=== PATIENT | female | born 1960 | race American Indian/Alaskan Native ===

== ENCOUNTER 2017-08-04 08:05 | Outpatient (CLI) | payer MEDICAID ==
--- NOTE | 2017-08-04 09:10 | Mammography Report ---
BILATERAL DIGITAL SCREENING MAMMOGRAM with CAD: 08/04/17 08:05:00 CLINICAL: Routine screening. COMPARISON: 08/04/16 FINDINGS: The breasts are mostly fatty with a few scattered areas of fibroglandular density.The right breast is smaller than the left but this is unchanged compared to prior exams.No mass, architectural distortion or suspicious calcifications. IMPRESSION: No mammographic evidence of malignancy. BI-RADS CATEGORY: 2 - - Benign RECOMMENDATION: Routine mammographic screening in one year. COMMENT: Patient follow-up letters are generated by our [employer] application.
== END 2017-08-04 08:06 | disposition home or self-care (01) ==
LOC: SPVWC 08:05
PROVIDERS: ATTEND Family Medicine
DX: Z12.31 Encounter for screening mammogram for malignant neoplasm of breast (principal)
CPT/HCPCS: 77067; G0202

== ENCOUNTER 2021-03-26 12:47 | Outpatient (CLI) | payer MEDICAID | END 2021-03-26 12:48 | disposition home or self-care (01) | LOC: SPVIMAG 12:47 | PROVIDERS: ATTEND Surgery | DX: C50.211 Malignant neoplasm of upper-inner quadrant of right female breast (principal) | CPT/HCPCS: A9575; C8908; 77049 ==

== ENCOUNTER 2021-04-03 13:17 | Outpatient (CLI) | payer MEDICAID ==
--- NOTE | 2021-04-08 08:47 | Mammography Report ---
RIGHT DIGITAL DIAGNOSTIC MAMMOGRAM WITH CAD , 04/03/2021 RIGHT LIMITED BREAST ULTRASOUND CLINICAL INFORMATION / INDICATION: -Abnormal MRI. 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 TECHNIQUE: Digital right mammographic imaging was performed. Magnification views were obtained. Limit ed ultrasound was performed. This examination was interpreted with the benefit of Computer-Aided Dete ction (CAD) analysis. COMPARISON: Recent MRI 03/26/2021 and prior bilateral mammogram 08/04/2017. The most recent mammogram f rom outside facility is not available for review. FINDINGS: Breast Density: There are scattered areas of fibroglandular density. MAMMOGRAPHIC FINDINGS: There is large area of malignant appearing calcifications in the upper inner q uadrant of the right breast, involving mid and posterior depth tissue. In the center of these calcifi cations is a biopsy clip.. The area of calcifications measures approximately 7.5 x 5 cm. Additionally, the subareolar area was evaluated. There is an oval partially well-circumscribed nodule containing a coarse calcification. The nodule measures approximately 6 mm in greatest diameter and m ore than likely correlates with enhancing nodule seen on recent MRI. This nodule was not present on t 2016 mammogram. I suspect this will either represent a papilloma or possible fibroadenoma. ULTRASOUND FINDINGS: Targeted ultrasound evaluation was performed of the area of interest. Sonograp hic evaluation of the retroareolar region of the right breast does not reveal a sonographic correlate for the subareolar nodule seen on mammogram and MRI. No abnormal lymph nodes identified in the right axilla. IMPRESSION: 1. Large area of malignant appearing calcifications in the upper inner quadrant of the right breast, spanning a distance of 7.5 x 5 cm. Reportedly this has been proven to be carcinoma. 2. There is a 6 mm nodule containing coarse calcification in the subareolar region of the right breas t, correlating with recent MRI findings. This is a new finding compared to older mammogram of 2017. S tatistically speaking, the most likely etiology is papilloma or fibroadenoma. However, given the pres ence of cancer in the same breast, biopsy or excision should be performed for histologic confirmation . . Follow up recommendation: Continued surgical consultation. BI-RADS Category 6: Known Biopsy-Proven Malignancy. A "normal" or negative report should not discourage follow up or biopsy of a clinically significant f inding. A written summary of these findings will be mailed to the patient. The patient will be entered into a mammography reporting system which will generate a reminder letter for the patient's next appointmen t at the appropriate interval. According to the [employer], yearly mammograms are recommended starting at age 40 and continuing as long as a woman is in good health. Breast MRI is recommended for women with an gabby roximately 20-25% or greater lifetime risk of breast cancer, including women with a strong family his tory of breast or ovarian cancer and women who have been treated for Hodgkin's disease. Signer Name: Bertha Pastrana MD Signed: 04/08/2021 8:43 AM Workstation Name: [id number]
--- NOTE | 2021-04-09 09:11 | Ultrasound Report ---
Please see the separately dictated report for the diagnostic mammogram performed on the same day for further details. Signer Name: Vince Mercedes MD Signed: 04/09/2021 7:32 AM Workstation Name: [id number]
== END 2021-04-03 13:18 | disposition home or self-care (01) ==
LOC: SPVWC 13:17
PROVIDERS: ATTEND Surgery
DX: C50.211 Malignant neoplasm of upper-inner quadrant of right female breast (principal); N63.41 Unspecified lump in right breast, subareolar

== ENCOUNTER 2021-04-08 14:08 | Outpatient (CLI) | payer MEDICAID ==
--- NOTE | 2021-04-08 15:32 | Mammography Report ---
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 60 years Female COMPARISON: None available. LUMBAR SPINE, L1-L4: - Bone mineral density (BMD) = 1.159 g/cm2. - T-score = 0.1 - Z-score = 1.7 Change (%) since most recent prior (if available): None available. LEFT HIP, NECK : - Bone mineral density (BMD) = 0.896 g/cm2. - T-score = -0.4 - Z-score = 0.7 Change (%) since most recent prior (if available): None available. IMPRESSION: 1. WHO Classification: Normal bone density. Fracture Risk: Not Increased. 2. 10-Year Fracture Risk (FRAX) = Major Osteoporotic Not reported.% / Hip: Not reported.% FRAX generally not reported for patients with normal or osteoporotic BMD, in egz-vpmeukp-iskrrcc jass ents younger than age 50, or in patients undergoing pharmacotherapy BMD Reporting Guidelines (ISCD, 2015) BMD Reporting in Postmenopausal Women and in Men Age 50 and Older - T-scores are preferred. - The WHO densitometric classification is applicable. BMD Reporting in Females Prior to Menopause and in Males Younger Than Age 50 - Z-scores, not T-scores, are preferred. This is particularly important in children. - A Z-score of -2.0 or lower is defined as below the expected range for age, and a Z-score above -2.0 is within the expected range for age. - Osteoporosis cannot be diagnosed in men under age 50 on the basis of BMD alone. - The WHO diagnostic criteria may be applied to women in the menopausal transition. http://www.iscd.org/official-positions/5513-vbiq-gscquoyk-positions-adult/ Signer Name: Alva Jay MD Signed: 04/08/2021 3:27 PM Workstation Name: [id number]
== END 2021-04-08 14:09 | disposition home or self-care (01) ==
LOC: SPVWC 14:08
PROVIDERS: ATTEND Internal Medicine Hematology & Oncology
DX: Z13.820 Encounter for screening for osteoporosis (principal); D05.11 Intraductal carcinoma in situ of right breast
CPT/HCPCS: 77080

== ENCOUNTER 2021-04-16 14:00 | Outpatient (CLI) | payer MEDICAID ==
--- NOTE | 2021-04-16 16:38 | Mammography Report ---
DIGITAL DIAGNOSTIC MAMMOGRAM WITH CAD , 04/16/2021 CLINICAL INFORMATION / INDICATION: Recent diagnosis of right breast DCIS. This is a postprocedure cindy mogram following biopsy of subareolar enhancing nodule noted on recent MRI. POST CLIP RT TECHNIQUE: Digital right mammographic imaging was performed. This examination was interpreted with the benefit of Computer-aided Detection analysis. COMPARISON: Recent mammogram 04/03/2021 and prior MRI 03/26/2021 FINDINGS: Breast Density: There are scattered areas of fibroglandular density. Postprocedure mammogram demonstrates a clip in the subareolar location of the right breast. Biopsy ch anges are seen adjacent to the nodule in question. The clip is located approximately 7 mm lateral to the subareolar nodule in question. IMPRESSION: Postprocedure mammogram demonstrates clip adjacent to the nodule in question. Follow up recommendation: Awaiting pathology results. Post biopsy imaging. A "normal" or negative report should not discourage follow up or biopsy of a clinically significant f inding. A written summary of these findings will be mailed to the patient. The patient will be entered into a mammography reporting system which will generate a reminder letter for the patient's next appointmen t at the appropriate interval. According to the [employer], yearly mammograms are recommended starting at age 40 and continuing as long as a woman is in good health. Breast MRI is recommended for women with an gabby roximately 20-25% or greater lifetime risk of breast cancer, including women with a strong family his tory of breast or ovarian cancer and women who have been treated for Hodgkin's disease. Signer Name: Bertha Pastrana MD Signed: 04/16/2021 4:33 PM Workstation Name: [id number]
--- NOTE | 2021-04-17 09:44 | Magnetic Resonance Report ---
MRI GUIDED RIGHT BREAST BIOPSY, 04/16/2021 CLINICAL INFORMATION / INDICATION: MALIGNANT NEOPLASM OF UPPER INNER QUAD OF RT BREAST. COMPARISON: Recent breast MRI 03/26/2021 and recent right mammogram 04/03/2021 PROCEDURE: Risks, benefits, and indications to the procedure were discussed with the patient in detail, includin g bleeding, infection, hematoma formation, and inadequate tissue sampling. The patient agreed to proc eed with both verbal and written consent. A timeout procedure was performed with two patient identifi ers. The patient was placed in the prone position in the MRI suite and localizer imaging was obtained usin g an 8 channel breast coil. Sagittal pre and post gadolinium fat-saturated sequences were obtained. The targeted area of interest, small enhancing lesion in the subareolar region, was then identified a nd coordinates were determined. The breast was cleansed and prepped in the usual sterile fashion. Lid ocaine 1% with and without epinephrine was used for local anesthesia. A 9 gauge introducer sheath and stylette was then advanced to the appropriate position from the lateral approach. The stylette was replaced with an obturator. Subsequent sagittal sequences were obtained to confirm satisfactory posit ioning of the sheath. Multiple vacuum-assisted 9 gauge core samples were obtained in a round the cloc k fashion with an ATE biopsy device. Post-biopsy images confirm satisfactory tissue sampling. A biop sy clip was then deployed at the biopsy site and sheath was removed. Hemostasis achieved with manual pressure. A sterile pressure dressing was applied to the skin. Post-biopsy mammogram was obtained. The patient tolerated the procedure without difficulty. No complications were encountered. Post-biopsy instructions were discussed with the patient and given in writing. IMPRESSION: 1. Technically successful MRI guided right subareolar breast biopsy. Biopsy results are pending and will be reported in an addendum. Signer Name: Bertha Pastrana MD Signed: 04/17/2021 9:40 AM Workstation Name: [id number]
== END 2021-04-16 14:01 | disposition home or self-care (01) ==
LOC: SPVIMAG 14:00
PROVIDERS: ATTEND Surgery
DX: C50.211 Malignant neoplasm of upper-inner quadrant of right female breast (principal); R92.8 Other abnormal and inconclusive findings on diagnostic imaging of breast
CPT/HCPCS: 19085; 77065; 88305; A4648; A9575; 88341; 88342

== ENCOUNTER 2021-05-30 08:38 | Outpatient (CLI) | payer MEDICAID ==
--- NOTE | 2021-05-30 14:31 | Mammography Report ---
DIGITAL DIAGNOSTIC MAMMOGRAM WITH CAD CONVENTIONAL, 05/30/2021 CLINICAL INFORMATION / INDICATION: Posterior tactic biopsy TECHNIQUE: Digital right mammographic imaging was performed. This examination was interpreted with the benefit of Computer-aided Detection analysis. COMPARISON: Right mammogram 04/16/2021 and priors FINDINGS: Breast Density: There are scattered areas of fibroglandular density. The originally targeted moderately large calcifications still are apparent on the post biopsy images. The cavity is seen immediately inferior to this area. Multiple calcifications, more suspicious than the original targeted calcifications, are seen which are thought to be part of the same grouping and superior to the known area of DCIS. Clip is noted approximately 4 cm inferior to the cavity. IMPRESSION: Calcifications sampled thought to be part of the targeted grouping as discussed. Clip marques cement is noted. Follow up recommendation: Per biopsy results Post biopsy imaging. A "normal" or negative report should not discourage follow up or biopsy of a clinically significant f inding. A written summary of these findings will be mailed to the patient. The patient will be entered into a mammography reporting system which will generate a reminder letter for the patient's next appointmen t at the appropriate interval. According to the [employer], yearly mammograms are recommended starting at age 40 and continuing as long as a woman is in good health. Breast MRI is recommended for women with an gabby roximately 20-25% or greater lifetime risk of breast cancer, including women with a strong family his tory of breast or ovarian cancer and women who have been treated for Hodgkin's disease. Signer Name: Brandyn Silverman MD Signed: 05/30/2021 2:27 PM Workstation Name: [id number]
--- NOTE | 2021-05-30 14:34 | Mammography Report ---
STEREOTACTIC GUIDED VACUUM ASSISTED MAMMOTOME BIOPSY OF THE RIGHT BREAST INDICATION: Known DCIS in the mid to posterior medial right breast as well as atypia in the retroareo lar area based on 2 recent biopsies by stereotactic and MR guidance. Additional grouping of microcalc ifications more superiorly in the far posterior breast. COMPARISON: Multiple prior recent mammograms and MR breast 03/26/2021 ANESTHESIA: Local DEVICE: Vacuum-assisted mammotome biopsy device, 8 gauge APPROACH: Superior CONSENT: Images were reviewed in detail with Dr. Lipscomb prior to the procedure. Procedure was disc ussed in advance at length with the patient including possible risks and benefits. The possibility of bleeding was discussed. Opportunity for questions was given. Patient is not on anticoagulant therapy and does not report pertinent allergies. Post procedural care was discussed. PROCEDURE: Timeout was performed. The small grouping of microcalcifications in the far posterior medi al upper right breast was targeted stereotactically. Using aseptic technique, needle was advanced. Mu ltiple biopsies were performed. Specimens were then radiographed revealing multiple microcalcificatio ns in at least 2 core samples. A metallic clip was then left in place and an image was obtained for c onfirmation. The device was removed and pressure was held at the puncture site. Site was secured. Spe cimens were sent to pathology for analysis. Patient was then sent for post biopsy mammogram which delvis wed the original targeted for microcalcifications were still present but the adjacent microcalcificat ions were sampled in this region. These were thought to be part of the same grouping in this area. Kee noble tolerated the procedure well and left the department in good condition. IMMEDIATE COMPLICATIONS: None IMPRESSION: Successful stereotactic guided vacuum assisted mammotome biopsy of the right breast Signer Name: Brandyn Silverman MD Signed: 05/30/2021 2:30 PM Workstation Name: [id number]
== END 2021-05-30 08:39 | disposition home or self-care (01) ==
LOC: SPVWC 08:38
PROVIDERS: ATTEND Surgery
DX: R92.0 Mammographic microcalcification found on diagnostic imaging of breast (principal); R92.8 Other abnormal and inconclusive findings on diagnostic imaging of breast; C50.211 Malignant neoplasm of upper-inner quadrant of right female breast
CPT/HCPCS: 19081; 77065; 88305; A4648; 88341; 88342

== ENCOUNTER 2021-06-28 07:17 | Day surgery (SDC) | payer MEDICAID ==
[~2021-06-28 07:17] MED LIST: ceFAZolin/STERILE WATER 2 GM/20 ML SYRINGE IV NR
[2021-06-28] MEDS ORDERED: LIDOCAINE (1%) 10 MG/1 ML VIAL 20 ML MDV ONE (08:24)
[2021-06-28] MEDS ORDERED: propofoL 200 MG/20 ML VIAL IV ONE ×2 (08:44→12:00)
[2021-06-28] MEDS ORDERED: fentaNYL 100 MCG/2 ML INJ ONE ×2 (08:44→13:20)
--- NOTE | 2021-06-28 09:36 | Mammography Report ---
MAMMOGRAPHIC GUIDED RIGHT BREAST NEEDLE LOCALIZATION, 06/28/2021 CLINICAL INFORMATION / INDICATION: RT BREAST CANCER. COMPARISON: 05/30/2021 PROCEDURE: Risks, benefits and indications to the procedure were discussed with the patient. The patient agreed to proceed with both verbal and written consent. A timeout procedure was performed with 2 patient cheri ntifiers. The breast was prepped with betadine in the usual sterile fashion. Approximately 5 cc of Lidocaine 1% was used for local anesthesia. An approximate 1.5 cm breast mass containing a surgical clip in the r etroareolar region was targeted. Under direct digital mammographic guidance, a localization wire was placed in satisfactory position with distal tip traversing the targeted lesion. Post-biopsy mammogram confirms satisfactory positioning of the localization wire. The wire was secured to the skin with a sterile dressing. The patient tolerated procedure without difficulty. No complications were encountered. IMPRESSION: 1. Satisfactory mammographic guided wire localization of the retroareolar right breast lesion. Signer Name: Bakari Hernandez Jr, MD Signed: 06/28/2021 9:32 AM Workstation Name: [id number]
--- NOTE | 2021-06-28 09:41 | Mammography Report ---
MAMMOGRAPHIC GUIDED RIGHT BREAST NEEDLE LOCALIZATION, 06/28/2021 CLINICAL INFORMATION / INDICATION: RT BREAST CANCER. Right breast calcifications COMPARISON: 05/30/2021 PROCEDURE: Risks, benefits and indications to the procedure were discussed with the patient. The patient agreed to proceed with both verbal and written consent. A timeout procedure was performed with 2 patient cheri ntifiers. The breast was prepped with betadine in the usual sterile fashion. Approximately 5 cc of Lidocaine 1% was used for local anesthesia. A large group of calcifications and 2 biopsy clips were targeted for bracketing. Under direct digital mammographic guidance, 2 localization wires were placed in satisfact ory position with distal tips traversing the targeted lesion. Post-biopsy mammogram confirms satisfac tory positioning of the localization wire. The wires were secured to the skin with a sterile dressing . The patient tolerated procedure without difficulty. No complications were encountered. IMPRESSION: 1. Satisfactory mammographic guided wire localization of the 2 biopsy clips and rather large cluster of calcifications in the medial posterior right breast. Signer Name: Bakari Hernandez Jr, MD Signed: 06/28/2021 9:37 AM Workstation Name: [id number]
--- NOTE | 2021-06-28 09:58 | Anesthesia Day of Surgery ---
Anesthesia Day of Surgery - Day of Surgery Patient Examined: Yes Patient H&P Reviewed: Yes Patient is NPO: Yes Beta Blockers: Yes Cardiac Clearance: No (PCP clearance)
[2021-06-28] MEDS ORDERED: BUPIVACAINE/PF (0.25%) 2.5 MG/ML 30 ML VIAL INFILTRATI ONE (10:02)
[2021-06-28] MEDS ORDERED: dexAMETHasone 4 MG/ML VIAL ONE (10:02)
[2021-06-28] MEDS ORDERED: ACETAMINOPHEN 500 MG TAB ONE (10:03)
--- NOTE | 2021-06-28 10:04 | Anesthesia Consultation ---
Anesthesia Consult and Med Hx Date of service: 06/28/21 - Airway Anesthetic Teeth Evaluation: Good (Many missing), Dentures, Partials, Edentulous ( ) ROM Head & Neck: Adequate Mental/Hyoid Distance: Adequate Mallampati Class: Class II Intubation Access Assessment: Good - Pre-Operative Health Status ASA Pre-Surgery Classification: ASA3 Proposed Anesthetic Plan: General Nerve Block: ES - Pulmonary Hx Smoking: No (FORMER SMOKER) Hx Pneumonia: Yes (01/2020) Hx Sleep Apnea: No - Cardiovascular System Hx Hypertension: Yes - Central Nervous System Hx Psychiatric Problems: Yes (Anxiety/Depression) - Endocrine 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
[2021-06-28] MEDS ORDERED: LACTATED RINGERS 1,000 ML ONE ×2 (10:05→15:12)
[2021-06-28] MEDS ORDERED: ACETAMINOPHEN 500 MG TAB PO ONE (10:30)
[2021-06-28] MEDS ORDERED: ONDANSETRON 4 MG/2 ML INJ IV PRN (10:30)
[2021-06-28] MEDS ORDERED: MAGNESIUM OXIDE 400 MG TAB PO ONE (10:30)
[2021-06-28] MEDS ORDERED: CELECOXIB 200 MG CAP PO NR (10:30)
[2021-06-28] MEDS ORDERED: LACTATED RINGERS 1,000 ML IV SCH (10:30)
[2021-06-28] MEDS ORDERED: MIDAZOLAM 2 MG/2 ML INJ IV NR (10:30)
[2021-06-28] MEDS ORDERED: HYDROmorphone 1 MG/1 ML INJ IV PRN ×2 (10:30)
[2021-06-28] MEDS ORDERED: fentaNYL 100 MCG/2 ML INJ IV ONE (10:30)
[2021-06-28] MEDS ORDERED: METHYLENE BLUE 50 MG/10 ML AMP ONE (11:57)
[2021-06-28] MEDS ORDERED: SODIUM CHLORIDE P/F VIAL 10 ML 10 ML ONE (11:57)
[2021-06-28] MEDS ORDERED: LIDOCAINE PF 100 MG/5 ML (CARDIAC SYRINGE) IV ONE (11:59)
--- NOTE | 2021-06-28 12:19 | Short Stay Summary ---
Short Stay Documentation Date of service: 06/28/21 - History H&P: obtained from office - Allergies and Medications Current Medications: Allergies No Known Allergies Allergy (Verified 06/17/21 11:36) Home Medications Medication Instructions Recorded Confirmed Last Taken Type ALPRAZolam [Xanax TAB] 0.5 mg PO DAILY PRN 06/17/21 06/28/21 06/28/21 06:00 History Acetaminophen [Tylenol] 325 mg PO BID 06/17/21 06/28/21 06/27/21 20:00 History Aspirin 650 mg PO QDAY 06/17/21 06/28/21 06/21/21 08:00 History Atenolol [Tenormin] 100 mg PO DAILY 06/17/21 06/28/21 06/28/21 06:00 History AtorvaSTATin [Lipitor] 20 mg PO QHS 06/17/21 06/28/21 06/28/21 10:49 History Levothyroxine [Synthroid] 125 mcg PO QAM 06/17/21 06/28/21 06/28/21 06:00 History Potassium Chloride [Klor-Con 8] 10 meq PO QDAY 06/17/21 06/28/21 06/27/21 20:00 History Quinapril HCl [Accupril] 40 mg PO DAILY 06/17/21 06/28/21 06/27/21 History amLODIPine [Norvasc] 5 mg PO DAILY 06/17/21 06/28/21 06/28/21 06:00 History hydrALAZINE [Apresoline TAB] 100 mg PO BID 06/17/21 06/28/21 06/28/21 06:00 History hydroCHLOROthiazide [HCTZ] 25 mg PO QDAY 06/17/21 06/28/21 06/27/21 20:00 History metFORMIN [Glucophage] 500 mg PO QDAY 06/17/21 06/28/21 06/27/21 20:00 History Oxycodone HCl/Acetaminophen 1 each PO Q6HR PRN 06/18/21 06/28/21 06/27/21 20:00 History [Percocet 7.5/325 mg] Ibuprofen [Motrin 800 MG tab] 800 mg PO Q8HR PRN #12 tablet 06/28/21 Unknown Rx Active Medications Cefazolin Sodium (Cefazolin/Sterile Water 2 Gm/20 Ml Syringe) 2 gm IV PREOP NR Stop: 06/28/21 23:59 Last Admin: 06/28/21 10:31 Dose: 2 gm Documented by: Celecoxib (Celecoxib 200 Mg Cap) 400 mg PO PREOP NR Stop: 06/28/21 23:59 Last Admin: 06/28/21 10:18 Dose: 400 mg Documented by: Hydromorphone HCl (Hydromorphone 1 Mg/1 Ml Inj) 0.25 mg IV Q10MIN PRN PRN Reason: Pain, Moderate (4-6) Hydromorphone HCl (Hydromorphone 1 Mg/1 Ml Inj) 0.5 mg IV Q10MIN PRN PRN Reason: Pain , Severe (7-10) Lactated Ringer's (Lactated Ringers) 1,000 mls @ 100 mls/hr IV DIRECT CHICA Last Admin: 06/28/21 10:18 Dose: 100 mls/hr Documented by: Ondansetron HCl (Ondansetron 4 Mg/2 Ml Inj) 4 mg IV ONCE PRN PRN Reason: Nausea And Vomiting - Brief post op/procedure progress note Date of procedure: 06/28/21 Pre-op diagnosis: Multicentric right breast cancer-central breast and right retroareolar atyp Post-op diagnosis: same Procedure: Right needle localization partial mastectomy and right retroareolar excisional biopsy Anesthesia: GETA Findings: Right wires and clips present Surgeon: SD CHAPMAN Estimated blood loss: minimal Pathology: list Specimen disposition: to lab Condition: stable - Disposition Condition at discharge: Good Disposition: 01 HOME / SELF CARE / HOMELESS Short Stay Discharge Plan Activity: other (no heavy lifting) Diet: regular Wound: keep clean and dry (may shower in 48 hours; no baths, pools or lakes; wear breast binder) Follow up with: SD CHAPMAN MD [Staff Physician] - 7 Days Prescriptions: RX: Ibuprofen [Motrin 800 MG tab] 800 mg PO Q8HR PRN #12 tablet PRN Reason: Pain , Severe (7-10)
[2021-06-28] MEDS ORDERED: dexAMETHasone 20 MG/5 ML VIAL ONE (12:25)
[2021-06-28] MEDS ORDERED: ONDANSETRON 4 MG/2 ML INJ ONE (12:25)
--- NOTE | 2021-06-28 12:27 | Operative Report ---
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 and retroareolar atypia of the lower outer quadrant Postoperative diagnosis: Same Procedure: Right needle localization partial mastectomy of the upper inner/central posterior quadrant and SLNB; and right retroareolar needle localization excisional biopsy of breast atypia of the lower outer quadrant Surgeon: Yulissa Lipscomb MD Data Management Specialist: Carmine Crenshaw MD Anesthesia: General Findings: Right wires and clip present within radiograph specimen of partial mastectomy and excisional biopsy; x5 SLNs Complications: None EBL: Minimal Disposition: PACU in good condition Indications for operative procedure: This is a 60 year old lady with newly diagnosed multicentric right breast cancer of the upper inner/central posterior quadrant, Stage 0 [id number] ER/DC positive and retroareolar aytypical intraductal proliferation. Given multicentric breast cancer and area of suspicious calcifications of at least 6-8 cm and retroareolar atypical intraductal proliferation, I did not recommend breast conservation and recommended a right mastectomy, patient only wanted to proceed with breast conservation and declined mastectomy. Radiology bracketed area of known cancer and also the area of atypia. She understands the role of adjuvant radiation therapy and Oncotype DX will be obtained by medical oncology if indicated if invasive carcinoma ident ified. She understands if margins are positive or close, additional surgery will be indicated. She wished to proceed with the above procedure. Procedure in detail: The patient was taken to radiology for wire placement for localization known area of cancer and area of atypia. Patient was then taken to the operating room. Gen. anesthesia was administered. The right nipple was injected with radioisotope and 1 cc of blue dye. Right breast and axilla were prepped and draped in the normal sterile operative fashion. The wires were identified. Timeout was performed. Gamma probe was inserted into the axilla. The area of hot spot was identified. A right axillary incision was made with a 15 blade knife with dissection taken down to the subcutaneous tissues. The axillary fascia was opened with the Bovie cautery. 5 SLNs were identified with blue dye present. All remaining counts were less than 10% of the highest count. Lymph nodes were sent to pathology for permanent processing. Hemostasis was obtained in the right axillary cavity. Axillary cavity was appropriately irrigated and suctioned. Hemostasis was noted. Axillary fascia was approximated and closed using interrupted 3-0 Vicryl and the skin brought together and closed using a running 4-0 Monocryl followed by skin affix. Attention was then taken towards the right breast. Ultrasound was used as well to aid in marking the area of incision to include known malignancy. A periareolar breast incision was made around the 7:00 position with a 15 blade knife and dissection taken down to subcutaneous tissues. First began raising of the superior flap with removal of the wire from the skin with dissection taken superiorly and past the wire and then down towards the pectoralis muscle posteriorly, followed by raising of the inferior flap, medial flap and lateral flap with all flaps taken past the wire and posteriorly towards the pectoralis muscle. The breast area of concern was appropriately removed posteriorly with the aid of the Bovie cautery. The wire was not encountered. Specimen was marked and then sent to pathology and radiology; radiograph specimen with wire and clip present. Breast cavity was irrigated and hemostasis was obtained. Then proceeded with closure; the posterior deep breast tissues were approximated and closed using interrupted 3-0 Vicryl. The subcutaneous tissues were approximated and closed using interrupted 3-0 Vicryl followed by closing of the skin with a running 4-0 Monocryl and dermabond. Attention was then taken towards the partial mastectomy of the upper inner quadrant. A 1:00 position periareolar breast incision was made with a 15 blade knife, then proceeded with raising of the superior flap with removal of the wires from the skin with dissection taken superiorly and past the wires and then down to the pectoralis muscle posteriorly, followed by raising of the inferior flap, medial flap and lateral flap with all flaps taken past the wires and posteriorly down to the pectoralis muscle. The breast area of concern was appropriately removed posteriorly from the pectoralis muscle with the aid of the Bovie cautery. The wires were not encountered. Specimen was marked and then sent to pathology and radiology; radiograph specimen with wires and clip present. Breast cavity was irrigated and hemostasis was obtained. She understood if margins are positive or close, additional surgery will be recommended. Margins appeared adequate. Then proceeded with complex closure; the posterior deep breast tissues were approximated and closed using interrupted 3-0 Vicryl. The subcutaneous tissues were approximated and closed using interrupted 3-0 Vicryl followed by closing of the skin with a running 4-0 Monocryl and dermabond. The patient tolerated surgery very well and she was awaken from anesthesia without any complication and transported to PACU in good condition.
[2021-06-28] MEDS ORDERED: ePHEDrine SULFATE 50 MG/1 ML INJ ONE (12:44)
[2021-06-28] MEDS ORDERED: METHYLENE BLUE 50 MG/10 ML AMP IV ONE (14:51)
[2021-06-28] MEDS ORDERED: WATER FOR IRRIG STERILE 1,500 ML BOTTLE IR ONE (14:51)
[2021-06-28] MEDS ORDERED: SODIUM CHLORIDE 0.9% P/F 10 ML VIAL IV ONE (14:52)
[2021-06-28] MEDS ORDERED: KETOROLAC 30 MG/1 ML INJ ONE (15:55)
--- NOTE | 2021-06-28 15:56 | Mammography Report ---
RIGHT BREAST SPECIMEN RADIOGRAPH, 06/28/2021 INDICATION: Right retroareolar breast mass COMPARISON: Needle localization performed earlier today FINDINGS: The previously localized target lesion is present in its entirety in the submitted specimen. The localization wire is present. IMPRESSION: 1. Radiographic evidence of satisfactory excision of the target lesion. Signer Name: Bakari Hernandez Jr, MD Signed: 06/28/2021 3:52 PM Workstation Name: [id number]
--- NOTE | 2021-06-28 15:58 | Mammography Report ---
RIGHT BREAST SPECIMEN RADIOGRAPH, 06/28/2021 INDICATION: Right posterior breast calcifications COMPARISON: Needle localization performed earlier today FINDINGS: The previously bracketed right breast calcifications are present in its entirety in the submitted spe cimen. 2 localization wires are present IMPRESSION: 1. Radiographic evidence of satisfactory excision of the target lesion. Signer Name: Bakari Hernandez Jr, MD Signed: 06/28/2021 3:53 PM Workstation Name: [id number]
--- NOTE | 2021-06-28 16:37 | Post Anesthesia Evaluation ---
- Post Anesthesia Evaluation Patient Participated: Yes Airway Patent: Yes Stable Respiratory Function: Yes Nausea/Vomiting: No Temp > 96.8F: Yes Pain Manageable: Yes Adequeate Hydration: Yes Anesthesia Complications: No Block Receding Appropriately: Yes Patient on Ventilator: No
[2021-06-28] MEDS ORDERED: oxyCODONE /ACETAMINOPHEN 5-325MG TAB ONE (16:50)
[2021-06-28] MEDS ORDERED: oxyCODONE /ACETAMINOPHEN 5-325MG TAB PO PRN (17:00)
[2021-06-28 19:37] VITALS: BP 141/82
== END 2021-06-28 07:18 | disposition home or self-care (01) ==
LOC: OR 07:17
PROVIDERS: ATTEND Surgery
DX: R92.8 Other abnormal and inconclusive findings on diagnostic imaging of breast (principal); C50.211 Malignant neoplasm of upper-inner quadrant of right female breast; R92.1 Mammographic calcification found on diagnostic imaging of breast; I10 Essential (primary) hypertension; E78.00 Pure hypercholesterolemia, unspecified; E03.9 Hypothyroidism, unspecified; F41.9 Anxiety disorder, unspecified; F32.9 Major depressive disorder, single episode, unspecified; Z87.891 Personal history of nicotine dependence; Z79.84 Long term (current) use of oral hypoglycemic drugs; Z79.899 Other long term (current) drug therapy; Z98.890 Other specified postprocedural states; Z20.822 Contact with and (suspected) exposure to COVID-19
CPT/HCPCS: 19281; 19282; 19302; 64450; 76098; 78800; 82962; 88307; 88341; 88342; A4648; A9541; J0690; J1100; J1885; J2001; J2250; J2405; J2704; J3010; J7120; Q9968; U0003